=== PATIENT | female | born 1970 | race Caucasian/White ===

== ENCOUNTER 2016-08-17 21:43 | Emergency (ER) | payer MEDICAID ==
[~2016-08-17] VITALS: Ht 162.6 cm; Wt 102.0 kg
[~2016-08-17 21:43] MED LIST: BACTDS PO; CEPH-443 PO; CEPH500C PO; IBUP-1542 PO; OMEP20CA16 PO
[2016-08-17 21:56] VITALS: Ht 162.6 cm; Wt 102.0 kg
--- NOTE | 2016-08-18 00:27 | ERD ---
ER Documentation Chief Complaint Date/Time DATE: 08/18/16 TIME: 00:25 Chief Complaint chronic left leg venous problem, hurting x 8 days. HPI 45-year-old female presents here in emergency department for complaints of left lower leg swelling and redness for 8 days now, patient has history of chronic left leg venous insufficiency. Patient private the pain as throbbing pain, 6/10 scale, worse upon touching the area. Patient denies any fever or chills. Patient denies any trauma on affected area. ROS All systems reviewed and are negative except as per history of present illness. Medications Home Meds Active Scripts Ibuprofen* (Motrin*) 600 Mg Tab, 600 MG PO Q6, #20 TAB Prov:ALVERTO LEROY NP 08/28/15 Omeprazole* (Omeprazole*) 20 Mg Capsule.dr, 20 MG PO DAILY, #30 CAP Prov:CHRISTOPHER SUÁREZ PA-C 08/14/15 Cephalexin* (Cephalexin*) 500 Mg Capsule, 500 MG PO Q6, #28 CAP Prov:CHRISTOPHER SUÁREZ PA-C 08/14/15 Ibuprofen* (Motrin*) 600 Mg Tab, 600 MG PO Q6, #18 TAB Prov:MARIA DE JESUS BEGUM MD 06/24/15 Cephalexin* (Keflex*) 500 Mg Capsule, 500 MG PO QID for 7 Days, CAP Prov:MARIA DE JESUS BEGUM MD 06/24/15 Sulfamethoxazole-Trimethoprim* (Bactrim* DS) 800-160 Mg Tab, 1 TAB PO BID for 7 Days, TAB Prov:MARIA DE JESUS BEGUM MD 06/24/15 Ibuprofen* (Ibuprofen*) 600 Mg Tablet, 600 MG PO Q6, #20 TAB Prov:EMILY ALEGRE PA-C 04/08/15 Reported Medications [None] No Conflict Check 05/18/13 Allergies Allergies: Coded Allergies: No Known Allergy (Verified , 06/24/15) PMhx/Soc History of Surgery: Yes () Anesthesia Reaction: No Hx Neurological Disorder: No Hx Respiratory Disorders: No Hx Cardiac Disorders: No Hx Psychiatric Problems: No Hx Miscellaneous Medical Probl: Yes (varicose vein) Hx Alcohol Use: No Hx Substance Use: No Hx Tobacco Use: No Smoking Status: Never smoker FmHx Family History: No coronary disease, No diabetes, No other Physical Exam Vitals Vital Signs Date Time Temp Pulse Resp B/P Pulse Ox O2 Delivery O2 Flow Rate FiO2 08/17/16 21:56 98.7 77 20 105/66 96 Physical Exam GENERAL: The patient is well developed and appropriate for usual state of health, in no apparent distress. CHEST: Clear to auscultation bilaterally. There are no rales, wheezes or rhonchi. HEART: Regular rate and rhythm. No murmurs, clicks, rubs or gallops. No S3 or S4. ABDOMEN: Soft, nontender and nondistended. Good bowel sounds. No rebound or guarding. No gross peritonitis. No gross organomegaly or masses. No Lutz sign or McBurney point tenderness. BACK: No midline or flank tenderness. EXTREMITIES: Negative Homans sign. Mild redness in the left lower leg noted. Able to do full range of motion of the left knee left ankle without any restriction. Noted open wound in the left lower leg, with mild redness surrounding the area. No fluctuance noted. Equal pulses bilaterally. Full range of motion of other joints of the body. Grossly neurovascularly intact. NEURO: Alert and oriented. Cranial nerves 2-12 intact. Motor strength in all 4 extremities with 5/5 strength. Sensation grossly intact. Normal speech and gait. SKIN: Brownish discoloration, hemosiderin deposits noted in the left lower leg . There is no apparent rash or petechia. The skin is warm and dry. HEMATOLOGIC AND LYMPHATIC: There is no evidence of excessive bruising or lymphedema. No gross cervical, axillary, or inguinal lymphadenopathy. Results 24 hrs PROCEDURE: US Lower extremity Venous. CLINICAL INDICATION: Left lower leg swelling. TECHNIQUE: Multiple sonographic images of the left lower extremity deep venous system was obtained utilizing grayscale, color-flow, compressive sonography and doppler imaging with augmentation. The images were reviewed on a PACS workstation. COMPARISON: None. FINDINGS: There is normal compressibility and flow within the left common femoral, deep femoral, superficial femoral and popliteal veins. The deep veins the calf were incompletely visualized. IMPRESSION: No sonographic evidence for deep venous thrombosis. RPTAT: [facility] R Javier Physician Date Time Electronically viewed and signed by Guillermo Herrera Physician on 08/18/2016 00:57 RS/ CC: GIULIANA ALEMAN NP Procedures/MDM Medical Decision Making: Patient's pain is most likely consistent with a from left lower leg venous insufficiency, also can be from early cellulitis on the wound on the affected area. No symptoms of neurovascular compromise. No DVT noted. Patient has intact sensation and circulation of the affected extremity. There is low suspicion for septic arthritis. Patient does not have any fever. Radiology exams of the affected area does not show any fracture or dislocation. Disposition: Home. Patient is given prescription for ibuprofen for pain, [place] for severe pain, Keflex, Bactrim. Patient was advised to elevate the affected area. Patient was advised that if symptoms are worse, numbness, tingling, high fever, unable to move joint, worsening symptoms, to return to emergency department immediately. Otherwise, patient is advised to follow up with the primary care doctor in 5-7 days for reevaluation of symptoms. Departure Diagnosis: Primary Impression: Cellulitis Site of cellulitis: extremity Site of cellulitis of extremity: lower extremity Laterality: left Qualified Code: L03.116 - Cellulitis of left lower extremity Additional Impression: Peripheral venous insufficiency Condition: Stable Patient Instructions: Cellulitis, Chronic Venous Insufficiency: Treating Ulcers Additional Instructions: Patient is given prescription for ibuprofen for pain, Beaver for severe pain, Keflex, Bactrim. Patient was advised to elevate the affected area. Patient was advised that if symptoms are worse, numbness, tingling, high fever, unable to move joint, worsening symptoms, to return to emergency department immediately. Otherwise, patient is advised to follow up with the primary care doctor in 5-7 days for reevaluation of symptoms. GIULIANA ALEMAN NP Aug 18, 2016 00:27
--- NOTE | 2016-08-18 00:57 | RADRPT ---
PROCEDURE: US Lower extremity Venous. CLINICAL INDICATION: Left lower leg swelling. TECHNIQUE: Multiple sonographic images of the left lower extremity deep venous system was obtained utilizing grayscale, color-flow, compressive sonography and doppler imaging with augmentation. The images were reviewed on a PACS workstation. COMPARISON: None. FINDINGS: There is normal compressibility and flow within the left common femoral, deep femoral, superficial f emoral and popliteal veins. The deep veins the calf were incompletely visualized. IMPRESSION: No sonographic evidence for deep venous thrombosis. RPTAT: [facility] Physician Maria Del Carmen Date Time Electronically viewed and signed by Physician Maria Del Carmen on 08/18/2016 00:57 RS/
[2016-08-18] MEDS ORDERED: IBUP400T22 PO (01:31)
[2016-08-18] MEDS ORDERED: CEPH-443 PO (01:31)
[2016-08-18] MEDS ORDERED: BACTDS PO (01:31)
[2016-08-18] MEDS ORDERED: HYDR-906 PO (01:31)
[2016-08-18 01:55] VITALS: BP 129/78; PULSE 62; RESP 20; TEMP 98.3
== END 2016-08-18 02:05 | disposition home or self-care (01) ==
LOC: FTE 21:43
DX: L03.116 Cellulitis of left lower limb (principal); I87.2 Venous insufficiency (chronic) (peripheral)
CPT/HCPCS: 93971; Z7502

== ENCOUNTER 2017-05-14 17:50 | Emergency (ER) | payer MEDICAID ==
[~2017-05-14] VITALS: Ht 157.5 cm; Wt 95.5 kg
[~2017-05-14 17:50] MED LIST changes: +HYDR-906 PO; +IBUP400T22 PO
[2017-05-14 17:57] VITALS: Ht 157.5 cm; Wt 95.5 kg
--- NOTE | 2017-05-14 20:06 | ERD ---
ER Documentation Chief Complaint Chief Complaint LEFT FOOT PAIN SKIN DRY AND SCALY HAS BEEN SEEN HERE FOR THAT HPI 46-year-old female presents to emergency department for complaints of left lower leg swelling and pain, patient has chronic venous vascular disease, venous insufficiency, has healing wounds in the left lower leg, not became more swollen and painful, wants it rechecked. Patient's complaint of pain sharp pain 4/10 scale, as was upon touching the area. Patient does not have any discharge coming from the wounds. Patient's wounds are dry. ROS All systems reviewed and are negative except as per history of present illness. Medications Home Meds Active Scripts Ibuprofen* (Motrin*) 400 Mg Tab, 400 MG PO Q6H Y for PAIN AND OR ELEVATED TEMP, #30 TAB Prov:GIULIANA ALEMAN NP 08/18/16 Hydrocodone/Acetaminophen ([place] 5-325 Tablet) 1 Each Tablet, 1 TAB PO Q6H Y for SEVERE PAIN LEVEL 7-10, #20 TAB Prov:GIULIANA ALEMAN NP 08/18/16 Sulfamethoxazole-Trimethoprim* (Bactrim* DS) 800-160 Mg Tab, 1 TAB PO BID for 10 Days, TAB Prov:GIULIANA ALEMAN NP 08/18/16 Cephalexin* (Keflex*) 500 Mg Capsule, 500 MG PO QID for 10 Days, CAP Prov:GIULIANA ALEMAN NP 08/18/16 Ibuprofen* (Motrin*) 600 Mg Tab, 600 MG PO Q6, #20 TAB Prov:ALVERTO LEROY NP 08/28/15 Omeprazole* (Omeprazole*) 20 Mg Capsule.dr, 20 MG PO DAILY, #30 CAP Prov:CHRISTOPHER SUÁREZ PA-C 08/14/15 Cephalexin* (Cephalexin*) 500 Mg Capsule, 500 MG PO Q6, #28 CAP Prov:CHRISTOPHER SUÁREZ PA-C 08/14/15 Ibuprofen* (Motrin*) 600 Mg Tab, 600 MG PO Q6, #18 TAB Prov:MARIA DE JESUS BEGUM MD 06/24/15 Cephalexin* (Keflex*) 500 Mg Capsule, 500 MG PO QID for 7 Days, CAP Prov:MARIA DE JESUS BEGUM MD 11/29/15 Sulfamethoxazole-Trimethoprim* (Bactrim* DS) 800-160 Mg Tab, 1 TAB PO BID for 7 Days, TAB Prov:MARIA DE JESUS BEGUM MD 06/24/15 Ibuprofen* (Ibuprofen*) 600 Mg Tablet, 600 MG PO Q6, #20 TAB Prov:EMILY ALEGRE PA-C 04/08/15 Reported Medications [None] No Conflict Check 05/18/13 Allergies Allergies: Coded Allergies: No Known Allergy (Verified , 06/24/15) PMhx/Soc History of Surgery: Yes () Anesthesia Reaction: No Hx Neurological Disorder: No Hx Respiratory Disorders: No Hx Cardiac Disorders: No Hx Psychiatric Problems: No Hx Miscellaneous Medical Probl: Yes (varicose vein) Hx Alcohol Use: No Hx Substance Use: No Hx Tobacco Use: No Smoking Status: Never smoker FmHx Family History: No coronary disease, No diabetes, No other Physical Exam Vitals Vital Signs Date Time Temp Pulse Resp B/P Pulse Ox O2 Delivery O2 Flow Rate FiO2 05/14/17 17:57 98.0 70 18 124/94 99 Physical Exam GENERAL: The patient is well developed and appropriate for usual state of health, in no apparent distress. CHEST: Clear to auscultation bilaterally. There are no rales, wheezes or rhonchi. HEART: Regular rate and rhythm. No murmurs, clicks, rubs or gallops. No S3 or S4. ABDOMEN: Soft, nontender and nondistended. Good bowel sounds. No rebound or guarding. No gross peritonitis. No gross organomegaly or masses. No Lutz sign or McBurney point tenderness. BACK: No midline or flank tenderness. EXTREMITIES: Equal pulses bilaterally. There is no peripheral clubbing, cyanosis or edema. No focal swelling or erythema. Full range of motion. Grossly neurovascularly intact. NEURO: Alert and oriented. Cranial nerves 2-12 intact. Motor strength in all 4 extremities with 5/5 strength. Sensation grossly intact. Normal speech and gait. SKIN: There is no apparent rash or petechia. The skin is warm and dry. HEMATOLOGIC AND LYMPHATIC: There is no evidence of excessive bruising or lymphedema. No gross cervical, axillary, or inguinal lymphadenopathy. Results 24 hrs PROCEDURE: US Lower extremity Venous. CLINICAL INDICATION: Left leg swelling. TECHNIQUE: Multiple sonographic images of the left lower extremity deep venous system was obtained utilizing turner scale, color-flow, compressive sonography and doppler imaging with augmentation. COMPARISON: 08/18/2016 FINDINGS: There is normal compressibility, phasicity and Doppler flow within the left common femoral, femoral and popliteal veins. Visualized portions of the calf veins are patent. IMPRESSION: No sonographic evidence for deep venous thrombosis in the left leg. RPTAT:AAJJ Physician Joanne Date Time Electronically viewed and signed by Narda Anne Physician on 05/14/2017 20 :39 MH/ CC: GIULIANA ALEMAN GRADING MACHINE OPERATOR Procedures/MDM Medical Decision Making: Patient's pain is most likely consistent with a contusion or a sprain patient has history of peripheral vascular disease, the wounds are healing well, no symptoms of any infection or cellulitis. There is no suspicion for neurovascular compromise. Patient has intact sensation and circulation of the affected extremity. There is low suspicion for septic arthritis. Patient does not have any fever. No DVT in ultrasound. Disposition: Home. Patient is given prescription for ibuprofen for pain and tramadol for severe pain. Patient was advised to elevate the affected area and apply ice on affected area. Patient was advised that if symptoms are worse, numbness, tingling, high fever, unable to move joint, worsening symptoms, to return to emergency department immediately. Otherwise, patient is advised to follow up with the primary care doctor in 5-7 days for reevaluation of symptoms. Disclaimer: Inadvertent spelling and grammatical errors are likely due to EHR/ dictation software use and do not reflect on the overall quality of patient care. Also, please note that the electronic time recorded on this note does not necessarily reflect the actual time of the patient encounter. Departure Diagnosis: Primary Impression: Chronic wound of extremity Additional Impression: Leg pain Laterality: left Qualified Code: M79.605 - Pain of left lower extremity Condition: Stable Patient Instructions: Venous Leg Ulcer Additional Instructions: Patient is given prescription for ibuprofen for pain and tramadol for severe pain. Patient was advised to elevate the affected area and apply ice on affected area. Patient was advised that if symptoms are worse, numbness, tingling, high fever, unable to move joint, worsening symptoms, to return to emergency department immediately. Otherwise, patient is advised to follow up with the primary care doctor in 5-7 days for reevaluation of symptoms. GIULIANA ALEMAN NP May 14, 2017 20:06
--- NOTE | 2017-05-14 20:39 | RADRPT ---
PROCEDURE: US Lower extremity Venous. CLINICAL INDICATION: Left leg swelling. TECHNIQUE: Multiple sonographic images of the left lower extremity deep venous system was obtained utilizing turner scale, color-flow, compressive sonography and doppler imaging with augmentation. COMPARISON: 08/18/2016 FINDINGS: There is normal compressibility, phasicity and Doppler flow within the left common femoral, femoral and popliteal veins. Visualized portions of the calf veins are patent. IMPRESSION: No sonographic evidence for deep venous thrombosis in the left leg. RPTAT:AAJJ Physician Joanne Date Time Electronically viewed and signed by Narda Anne Physician on 05/14/2017 20:39 /
[2017-05-14] MEDS ORDERED: TRAM50TA2 PO (20:50)
[2017-05-14] MEDS ORDERED: IBUP-1542 PO (20:50)
== END 2017-05-14 21:22 | disposition home or self-care (01) ==
LOC: FTE 17:50
DX: L97.929 Non-pressure chronic ulcer of unspecified part of left lower leg with unspecified severity (principal)
CPT/HCPCS: 93971; Z7502

== ENCOUNTER 2017-08-14 16:42 | Emergency (ER) | END 2017-08-14 22:24 | disposition home or self-care (01) ==

== ENCOUNTER 2018-06-04 04:57 | Inpatient (IN) | END 2018-06-06 11:45 | disposition home or self-care (01) | DRG 745 ==